=== PATIENT | female | born 1985 | race Two or more races ===

== ENCOUNTER 2024-05-24 06:00 | Day surgery (SDC) | payer MEDICAID, SELFPAY ==
[2024-05-18 08:12] VITALS: BMI 36.1
[2024-05-18 10:18] LABS: HCG,Qualitative Serum Negative
[2024-05-18 10:19] LABS: Basophils % (Auto) 1 % (0-2.5); Eosinophils # (Auto) 0.1 Thou/mm3 (0.0-0.5); Eosinophils % (Auto) 2 % (0-10); Hematocrit 39.5 % (36.0-46.0); Hemoglobin 13.5 g/dL (12.0-16.0); Immature Granulocytes % (Auto) 0 % (0-0); Immature Granulocytes Auto 0.02 Thou/mm3 (0.00-0.00); Lymphocytes # (Auto) 1.5 Thou/mm3 (1.0-4.8); Lymphocytes % (Auto) 26 % (10-50); Mean Corpuscular HGB Conc 34.2 g/dl (31.0-37.0); Mean Corpuscular Hemoglobin 31.3 pg (25.0-35.0); Mean Corpuscular Volume 91 fL (80-100); Monocytes # (Auto) 0.3 Thou/mm3 (0.0-0.8); Monocytes % (Auto) 6 % (0-12); Neutrophils # (Auto) 3.7 Thou/mm3 (1.8-7.7); Neutrophils % (Auto) 65 % (37-80); Nucleated Red Blood Cell % 0 /100 WBC (0); Platelet Count 213 Thou/mm3 (140-440); RDW Standard Deviation 41.7 fL (36.4-46.3); Red Blood Count 4.32 Miln/mm3 (4.00-5.20); White Blood Count 5.7 Thou/mm3 (3.6-11.0)
[2024-05-18 10:22] LABS: Anion Gap 10 (7-16); BUN/Creatinine Ratio 20 Ratio (12-20); Blood Urea Nitrogen 14 mg/dL (9-23); Calcium 9.3 mg/dL (8.3-10.6); Chloride 105 mMol/L (98-107); Creatinine (Component) 0.7 mg/dL (0.6-1.3); Estimated Creatinine Clearance 102.6 mL/min (>60); Glucose 96 mg/dL (74-106); Osmolality,Calculated 283 (275-295); Potassium 4.1 mMol/L (3.4-5.1); Sodium 142 mMol/L (136-145); eGFR > 60 See Note
[2024-05-24] VITALS (9 sets, daily range): BP systolic 111–126; BP diastolic 64–87; PULSE 60–77; RESP 12–20; TEMP 36.5–37.1; O2SAT 96–100; BMI 35.7
[2024-05-24] MEDS: RINGERS LACTATED 1000 ML 1,000 ML 20 ML IV (06:46)
--- NOTE | 2024-05-24 09:17 | ESOP_ITS ---
Date of Procedure 05/24/24 Pre Op Diagnosis Incarcerated umbilical hernia Post Op Diagnosis Incarcerated umbilical hernia Procedure Laparoscopic assisted repair of incarcerated umbilical hernia with mesh Findings An approximately 4 cm umbilical hernia defect with incarcerated omentum Procedure Description Patient brought into the operating room in supine position. After administration of general orotracheal anesthesia, patient's abdomen prepped and draped in standard surgical manner. A 5 mm incision was made in left upper quadrant and Veress needle was inserted, pneumoperitoneum was obtained to 15 mmHg. The Veress needle was removed and a 5 mm trocar was placed. Laparoscopic camera was inserted, under direct visualization a laparoscopic camera a 5 mm trocar placed in left lower quadrant and additional 5 mm trocar placed in right lower quadrant. The abdomen was inspected and patient was noted to have an incarcerated umbilical hernia with omentum being incarcerated within the hernia sac. The hernia sac was excised with Harmonic scalpel laparoscopically and the omentum was reduced. At this point approximately 3 cm semicircular incision was made inferior to the umbilicus and dissection was carried to subcutaneous tissue. The hernia sac was circumferentially dissected off surrounding tissue and excised from surrounding abdominal fascia. The fascia was cleared from overlying tissue. The defect was approximately 4 cm in diameter. A 4 x 6 elliptical shape proceed mesh was used to cover the defect. 2 tacking sutures using 0 Ethibond placed the 2 ends of the mesh and the mesh was placed inside the abdominal cavity through the hernia defect. The defect was closed with interrupted sutures using 0 Ethibond. The umbilicus was tacked into the underlying abdominal fascia was 2-0 Vicryl suture in subcutaneous tissue closed with interrupted sutures of 2-0 Vicryl. The abdomen was once again insufflated. 2 tacking sutures of the 2 ends of the mesh were retrieved through the previously marked abdominal wall site. Sutures were tightened and the mesh was further secured into anterior abdominal wall with secure strap tacking device. The mesh was covering the defect with at least 4 cm circumferential margin. Hemostasis was adequate and satisfactory. Instruments and trocars removed, pneumoperitoneum was evacuated and the incisions closed 4-0 Monocryl subcuticular fashion. Instruments, needles and sponge counts were reported to be correct ?2 patient tolerated the procedure well. Patient was extubated, breathing spontaneously and without difficulty and was transferred to postanesthesia care in stable condition. Anesthesia GETA and local Pathology / specimen Other (Hernia sac) Estimated Blood Loss 5 Condition Stable Disposition PACU Surgeon Akbar Domínguez MD Surgical Staff Operation Date: 05/24/24 08:30 Case Staff Anesthesiologist: Mando Pedroza RNmountain bike guide: Christina Sim
--- NOTE | 2024-05-24 09:23 | SUR.PHASEI ---
0923 Patient arrived to recovery resting comfortably in [facility], on oxygen 8L via oxy mask, breating unlabored, vital signs stable, denies pain, dressing intact to abdomen; x1-dermabond, gauze, medipore tape, x3 dermabond, no bleeding noted, denies nausea, report received from Veronica MCCLENDON and Mando YOUNG
[2024-05-24] MEDS: HYDROmorphone INJ 2 MG/ML VIAL 0.5 MG IV ×3 (09:48→10:10)
--- NOTE | 2024-05-24 11:01 | SUR.PHASEII ---
1101 Patient meets discharge criteria from recovery, awake and alert, breathing unlabored, vital signs stable, per patient her pain is tolerable, dressing intact; no bleeding noted, abdominal binder applied per MD order, patient drinking fluids; tolerating well, denies nausea, patient assisted with dressing into her clothing by her , discharge instructions given with the assistance of the telephone lna Sarah ID#[id number] with teach-back approach, both receptive, patients signed discharge instructions. Patient given all her belongings prior to discharge, transported via wheelchair and left in a private vehicle.
== END 2024-05-24 11:01 | disposition home or self-care (01) ==
PROVIDERS: PCP Family Medicine; Referring Provider Surgery; Visit Provider Surgery
PROC: 0WQF4ZZ Repair Abdominal Wall, Percutaneous Endoscopic Approach (ICD-10-PCS; CPT 49594; principal; 2024-05-24 08:30)
DX: K42.0 Umbilical hernia with obstruction, without gangrene (principal)
CPT/HCPCS: 49594; 36415; 80048; 84703; 85025; A4217; A4649; C1781; J0131; J0690; J1100; J1885; J2405; J2704; J3010; J3490; J7120

== ENCOUNTER 2024-09-12 15:08 | Emergency (ER) | payer MEDICAID, SELFPAY ==
[2024-09-12 15:49] VITALS: BP 125/75; PULSE 78; RESP 15; TEMP 36.8; O2SAT 98; BMI 33.3
--- NOTE | 2024-09-12 15:54 | XR_ITS ---
Examination: CT abdomen and pelvis without contrast. Coronal 3-D reconstructions. Sagittal 2-D reconstructions. Date and time of exam:September 12, 2024 1931 hours INDICATIONS: Left-sided abdominal pain and vomiting beginning 3 days ago CTDI: vol (mGy): 10. DLP: (mGycm): 553. Technique: Axial images of the abdomen have been obtained, 3 mm slice thickness Intravenous contrast material has not been administered. Low dose protocols were performed. One or more of the following dose reduction techniques were used; automated exposure control, adjustment of the mA and/or KV according to patient size, use of iterative reconstruction technique. Findings: No focal liver or splenic lesions No gallstones No pancreatic or adrenal mass Tiny 1 to 2 mm right renal calculi, no hydronephrosis or renal calculi Aorta normal size No pericecal inflammatory changes No bowel obstruction No bladder mass or bladder calculi Moderate disc narrowing L4-L5 IMPRESSION: 1 to 2 mm right renal calculi, no hydronephrosis or ureteral calculi No CT findings of bowel obstruction or diverticulitis Normal appendix
[2024-09-12] MEDS: ONDANSETRON ODT 4 MG TABRAP PO (16:07)
[2024-09-12] MEDS: HYDROcodone/APAP 5/325 TABLET 1 TAB PO (16:07)
[2024-09-12 16:17] LABS: Basophils # (Auto) 0.0 Thou/mm3 (0.0-0.2); Basophils % (Auto) 0 % (0-2.5); Eosinophils # (Auto) 0.0 Thou/mm3 (0.0-0.5); Eosinophils % (Auto) 0 % (0-10); Hematocrit 40.9 % (36.0-46.0); Hemoglobin 14.0 g/dL (12.0-16.0); Immature Granulocytes Auto 0.01 Thou/mm3 (0.00-0.00); Lymphocytes # (Auto) 1.3 Thou/mm3 (1.0-4.8); Lymphocytes % (Auto) 21 % (10-50); Mean Corpuscular HGB Conc 34.2 g/dl (31.0-37.0); Mean Corpuscular Hemoglobin 31.7 pg (25.0-35.0); Mean Corpuscular Volume 93 fL (80-100); Monocytes # (Auto) 0.3 Thou/mm3 (0.0-0.8); Monocytes % (Auto) 6 % (0-12); Neutrophils # (Auto) 4.3 Thou/mm3 (1.8-7.7); Neutrophils % (Auto) 72 % (37-80); Nucleated Red Blood Cell # 0.00 Thou/mm3 (0.00-0.00); Nucleated Red Blood Cell % 0 /100 WBC (0); Platelet Count 244 Thou/mm3 (140-440); RDW Standard Deviation 43.0 fL (36.4-46.3); Red Blood Count 4.41 Miln/mm3 (4.00-5.20); White Blood Count 5.9 Thou/mm3 (3.6-11.0)
--- NOTE | 2024-09-12 16:18 | PD.EDABDPN ---
ED Abdominal Pain RME/HPI General Chief Complaint: Abdominal Pain Stated complaint: L) ABD PAIN W/ VOMITING X 3 DAYS Time seen by provider: 09/12/24 15:24 Arrival date/time: 09/12/24 15:08 39-year-old female with no known medical history presents to the emergency room with a chief complaint of left-sided abdominal pain and vomiting x 3 days Source: patient Mode of arrival: ambulatory Limitations: no limitations Related Data Home Medications ?Medication ?Instructions ?Recorded ?Confirmed norethindrone (contraceptive) 0.35 0.35 mg PO DAILY 05/18/24 05/18/24 mg tablet Previous Rx's ?Medication ?Instructions ?Recorded docusate sodium 100 mg capsule 100 mg PO BID #30 caps 05/24/24 (Colace) hydrocodone 5 mg-acetaminophen 325 1 tab PO Q6H PRN pain (scale score 05/24/24 mg tablet 7-10) #15 tabs ibuprofen 600 mg tablet 600 mg PO Q8H PRN pain (scale 05/24/24 score 4-6) #15 tabs Allergies Allergy/AdvReac Type Severity Reaction Status Date / Time No Known Allergies Allergy Verified 09/12/24 15:12 ED Exam General Limitations: Present no limitations Course Orders Category Date Time Status CT abdomen pelvis wo con Stat Exams 09/12/24 15:54 Ordered CBC Stat Lab 09/12/24 16:05 Received CMP [Comprehensive Metabolic Panel] Stat Lab 09/12/24 16:05 Received HCG Qualitative,Urine Stat Lab 09/12/24 15:54 Ordered Lipase Stat Lab 09/12/24 16:05 Received UA [Urinalysis] Stat Lab 09/12/24 15:54 Ordered Urine Culture Stat Lab 09/12/24 15:54 Ordered HYDROcodone*/APAP 5/325 [[place] 5/325] Med 09/12/24 15:54 Discontinued 1 tab PO X1 ONE Ondansetron Odt [Zofran Odt] Med 09/12/24 15:54 Discontinued 4 mg PO X1 ONE Vital Signs Vital signs: Vital Signs Temperature 98.3 F 09/12/24 15:49 Pulse Rate 78 09/12/24 15:49 Respiratory Rate 15 09/12/24 15:49 Blood Pressure 125/75 09/12/24 15:49 Pulse Oximetry (%) 98 09/12/24 15:49 Oxygen Delivery Method Room Air 09/12/24 15:49 Abdominal Pain MDM Medications / Prescriptions Medication administrations:: Medication Administration History Discontinued Medications Hydrocodone Bitart/Acetaminophen (Hydrocodone/Apap 5/325 Tablet) 1 tab PO X1 ONE Stop: 09/12/24 15:55 Last Admin: 09/12/24 16:07 Dose: 1 tab Documented By: RADHA Ondansetron HCl (Ondansetron Odt 4 Mg Tabrap) 4 mg PO X1 ONE; Protocol Stop: 09/12/24 15:55 Last Admin: 09/12/24 16:07 Dose: 4 mg Documented By: RADHA Discharge Plan Prescriptions/Referrals Prescriptions/Med Rec: No Action norethindrone (contraceptive) 0.35 mg tablet 0.35 mg PO DAILY docusate sodium [Colace] 100 mg capsule 100 mg PO BID Qty: 30 0RF ibuprofen 600 mg tablet 600 mg PO Q8H PRN (Reason: pain (scale score 4-6)) Qty: 15 0RF hydrocodone-acetaminophen 5-325 mg tablet 1 tab PO Q6H MDD 4 PRN (Reason: pain (scale score 7-10)) Qty: 15 0RF Patient/Caregiver Discharge Instructions Print Language: Prydeinig
[2024-09-12 16:43] LABS: Alanine Aminotransferase 10 U/L (10-49); Albumin, Serum 4.6 gm/dL (3.5-5.0); Albumin/Globulin Ratio 1.7 (1.2-2.2); Alkaline Phosphatase 52 U/L (46-116); Anion Gap 11 (7-16); Aspartate Amino Transferase 19 U/L (0-34); BUN/Creatinine Ratio 11 Ratio (12-20); Bilirubin,Total 0.4 mg/dL (0.3-1.2); Blood Urea Nitrogen 9 mg/dL (9-23); Calcium 9.2 mg/dL (8.3-10.6); Calcium (Corrected) 9.2 mg/dL (8.5-10.1); Carbon Dioxide 25.5 mMol/L (20.0-31.0); Chloride 107 mMol/L (98-107); Creatinine (Component) 0.8 mg/dL (0.6-1.3); Estimated Creatinine Clearance 93.1 mL/min (>60); Globulin 2.7 gm/dL (2.3-3.5); Glucose 97 mg/dL (74-106); Lipase 48 U/L (12-53); Osmolality,Calculated 283 (275-295); Potassium 3.7 mMol/L (3.4-5.1); Sodium 143 mMol/L (136-145); Total Protein 7.3 gm/dL (5.7-8.2); eGFR > 60 See Note
[2024-09-12 17:22] LABS: Collection Type, Urine Clean Catch
--- NOTE | 2024-09-12 17:43 | PD.EDRME ---
Rapid Medical Screening Exam RME Arrival date/time: 09/12/24 15:08 39-year-old female with no known medical history presents to the emergency room with a chief complaint of left-sided abdominal pain and vomiting x 3 days I have greeted and performed a focused initial assessment of this patient. A comprehensive ED assessment and evaluation of the patient, analysis of all test results, and completion of the medical decision making process will be conducted by additional ED providers. Chief Complaint: Abdominal Pain Time Seen by Provider: 09/12/24 15:24 Vital signs: Vital Signs Temperature 98.3 F 09/12/24 15:49 Pulse Rate 78 09/12/24 15:49 Respiratory Rate 15 09/12/24 15:49 Blood Pressure 125/75 09/12/24 15:49 Pulse Oximetry (%) 98 09/12/24 15:49 Oxygen Delivery Method Room Air 09/12/24 15:49 Vital signs reviewed by provider: Yes
[2024-09-12 17:55] LABS: HCG Qualitative,Urine Negative
[2024-09-12 17:58] LABS: Bilirubin,Urine Negative (Negative); Blood,Urine 3+ (Negative); Color,Urine Yellow (Lt Yel-Yel); Glucose, Urine Negative (Negative); Ketones,Urine 3+ (Negative); Leukocyte Esterase,Urine Negative (Negative); Nitrite,Urine Negative (Negative); PH,Urine 6.0 (5.0-7.0); Protein,Urine 1+ (Neg - Trace); RBC,Urine 72 /hpf (0-3); Specific Gravity,Urine 1.033 (1.001-1.035); Squamous Epithelial Cell,Urine < 1 /hpf (0-5); Urobilinogen,Urine Negative mg/dL (0.0-1.0); WBC,Urine 1 /hpf (0-5)
[2024-09-12 17:59] LABS: Clarity,Urine Hazy (Clear/Hazy)
--- NOTE | 2024-09-12 19:00 | PC.NURSE ---
CALLED CT RE: WHEN PT WILL BE TAKEN. THERE IS 1 PT AHEAD OF HER. PT INFORMED.
[2024-09-12 19:35] VITALS: BP 138/84; PULSE 72; RESP 16; TEMP 36.9; O2SAT 100
--- NOTE | 2024-09-12 21:14 | PD.EDABDPN ---
ED Abdominal Pain RME/HPI General Chief Complaint: Abdominal Pain Stated complaint: L) ABD PAIN W/ VOMITING X 3 DAYS Time seen by provider: 09/12/24 15:24 Arrival date/time: 09/12/24 15:08 Limitations: no limitations RME / HPI RME / HPI narrative: 09/12/24 15:08 39-year-old female with no known medical history presents to the emergency room with a chief complaint of left-sided abdominal pain and vomiting x 3 days She has had some nausea without vomiting. No changes in bowel movements. No fevers or chills. She denies any flank pain or dysuria. Has no gross hematuria. She denies any diarrhea. She has no other acute complaints. Related Data Home Medications ?Medication ?Instructions ?Recorded ?Confirmed norethindrone (contraceptive) 0.35 0.35 mg PO DAILY 05/18/24 05/18/24 mg tablet Previous Rx's ?Medication ?Instructions ?Recorded docusate sodium 100 mg capsule 100 mg PO BID #30 caps 05/24/24 (Colace) hydrocodone 5 mg-acetaminophen 325 1 tab PO Q6H PRN pain (scale score 05/24/24 mg tablet 7-10) #15 tabs ibuprofen 600 mg tablet 600 mg PO Q8H PRN pain (scale 05/24/24 score 4-6) #15 tabs cephalexin 500 mg capsule 500 mg PO Q6H 7 days #28 caps 09/12/24 cephalexin 500 mg capsule 500 mg PO QID 7 days #28 caps 09/12/24 Allergies Allergy/AdvReac Type Severity Reaction Status Date / Time No Known Allergies Allergy Verified 09/12/24 15:12 Review of Systems Review of Systems Systems Reviewed: All systems reviewed, normal except as documented ED Exam General Limitations: Present no limitations General appearance: Present alert and in no apparent distress Head Head exam: Present atraumatic Eye Eye exam: Present normal appearance, PERRL and EOMI ENT ENT exam: Present normal exam, normal oropharynx and mucous membranes moist Neck Neck exam: Present normal inspection, full ROM and trachea midline Chest Chest inspection: Present normal inspection and symmetric chest wall rise Respiratory Respiratory exam: Present normal lung sounds bilaterally Cardiovascular Cardiovascular exam: Present regular rate, normal rhythm and normal heart sounds Abdominal Exam Abdominal exam: Present soft; Absent distention, tenderness, guarding or rebound Extremities Exam Extremities exam: Present normal inspection and full ROM Back Exam Back exam: Present normal inspection and full ROM Neurological Exam Neurological exam: Present alert and oriented X3 Psychiatric Psychiatric exam: Present normal affect and normal mood Skin Skin exam: Present warm, dry, intact and normal color Course Quality Measures none Orders Category Date Time Status CT abdomen pelvis wo con Stat Exams 09/12/24 15:54 Completed CBC Stat Lab 09/12/24 16:05 Completed CMP [Comprehensive Metabolic Panel] Stat Lab 09/12/24 16:05 Completed HCG Qualitative,Urine Stat Lab 09/12/24 17:00 Completed Lipase Stat Lab 09/12/24 16:05 Completed UA [Urinalysis] Stat Lab 09/12/24 17:00 Completed Urine Culture Stat Lab 09/12/24 17:00 Received HYDROcodone*/APAP 5/325 [[place] 5/325] Med 09/12/24 15:54 Discontinued 1 tab PO X1 ONE Ketorolac Inj [Toradol Inj] Med 09/12/24 21:02 Discontinued 15 mg IVP X1 ONE Ondansetron Odt [Zofran Odt] Med 09/12/24 15:54 Discontinued 4 mg PO X1 ONE Tamsulosin HCl [Flomax] Med 09/12/24 21:06 Discontinued 0.4 mg PO X1 ONE cephALEXin [Keflex] Med 09/12/24 21:06 Discontinued 500 mg PO X1 ONE Vital Signs Vital signs: Vital Signs Temperature 98.3 F 09/12/24 15:49 Pulse Rate 78 09/12/24 15:49 Respiratory Rate 15 09/12/24 15:49 Blood Pressure 125/75 09/12/24 15:49 Pulse Oximetry (%) 98 09/12/24 15:49 Oxygen Delivery Method Room Air 09/12/24 15:49 Abdominal Pain MDM MDM Narrative MDM Narrative:: 09/12/24 15:08 39-year-old female with no known medical history presents to the emergency room with a chief complaint of left-sided abdominal pain and vomiting x 3 days She has had some nausea without vomiting. No changes in bowel movements. No fevers or chills. She denies any flank pain or dysuria. Has no gross hematuria. She denies any diarrhea. She has no other acute complaints. On exam, patient is nontoxic-appearing and in no visible signs of distress. Vital signs are stable. Workup reveals no leukocytosis or anemia. Metabolic panel is unremarkable. Urinalysis reveals 72 erythrocytes with no significant leukocytes. I reviewed the CT, thought there was a question of a right-sided ureter stone near the UVJ however the radiologist reports no ureterolithiasis Discussed findings with the patient. She is placed on Keflex. She will be discharged with prescription of Keflex and naproxen. She is asked to follow-up with her primary doctor this week. Return as needed for any worsening or emergent changes Patient data External records reviewed:: None Clinical information provided by:: patient Social determinants that could affect healthcare access:: none Patient has the following chronic illnesses:: n/a How is presenting disease/condition affected by chronic disease/condition?: no chronic disease Evaluation data The following diagnostics were reviewed and interpreted by me:: lab results (CBC, metabolic panel, are unremarkable. There is microscopic hematuria.) and radiology exam(s) (Radiology reports no acute abnormalities) Lab and/or radiology exams considered but not ordered:: n/a Interpretation Summary: Hematuria Medications / Prescriptions Medications or Prescriptions considered but not ordered:: n/a Medication administrations:: Medication Administration History Discontinued Medications Hydrocodone Bitart/Acetaminophen (Hydrocodone/Apap 5/325 Tablet) 1 tab PO X1 ONE Stop: 09/12/24 15:55 Last Admin: 09/12/24 16:07 Dose: 1 tab Documented By: RADHA Cephalexin HCl (Cephalexin 250 Mg Capsule) 500 mg PO X1 ONE Stop: 09/12/24 21:07 Last Admin: 09/12/24 21:19 Dose: 500 mg Documented By: NERISSA Ketorolac Tromethamine (Ketorolac Inj 30 Mg/Ml Vial) 15 mg IVP X1 ONE Stop: 09/12/24 21:03 Last Admin: 09/12/24 21:19 Dose: 15 mg Documented By: NERISSA Ondansetron HCl (Ondansetron Odt 4 Mg Tabrap) 4 mg PO X1 ONE; Protocol Stop: 09/12/24 15:55 Last Admin: 09/12/24 16:07 Dose: 4 mg Documented By: RADHA Tamsulosin HCl (Tamsulosin Hcl 0.4 Mg Capsule) 0.4 mg PO X1 ONE Stop: 09/12/24 21:07 Last Admin: 09/12/24 21:19 Dose: 0.4 mg Documented By: NERISSA See above Consultations Consultation(s) initiated? (list below): No Diagnosis Differential diagnosis abdominal pain: acute appendicitis, calculus of kidney, pancreatitis and small bowel obstruction Most likely diagnosis given after review of the tests above:: Hematuria Admission Indicated Admission indicated?: not indicated Admission Request Was there a request for admission?: No Disposition Plan Disposition Plan: Discharge Discharge Attestation Discharge Attestation: The patient and all family members were given an opportunity to ask questions and understood the discharge instructions. Discharge instructions specifically effects, indications for sooner follow up or return to the emergency department, and the expected course of current diagnosis. Patient condition: Stable Discharge Plan Plan Patient Disposition: HOME (Self Care) Patient condition on transfer: Stable Prescriptions/Referrals Prescriptions/Med Rec: New cephalexin 500 mg capsule 500 mg PO QID 7 Days Qty: 28 0RF cephalexin 500 mg capsule 500 mg PO Q6H 7 Days Qty: 28 0RF No Action norethindrone (contraceptive) 0.35 mg tablet 0.35 mg PO DAILY docusate sodium [Colace] 100 mg capsule 100 mg PO BID Qty: 30 0RF ibuprofen 600 mg tablet 600 mg PO Q8H PRN (Reason: pain (scale score 4-6)) Qty: 15 0RF hydrocodone-acetaminophen 5-325 mg tablet 1 tab PO Q6H MDD 4 PRN (Reason: pain (scale score 7-10)) Qty: 15 0RF Referrals: No Primary/Family,Physician [Primary Care Provider] - In 1 week Problem List Clinical Impression: Cystitis Patient/Caregiver Discharge Instructions Education Materials: ED CYSTITIS Female Adult Additional Instructions: - Aumente la hidrataci?n oral. Use el antibi?ulises recetado. - Realice un seguimiento cl?rosetta minucioso esta semana. - Regrese seg?n sea necesario ante cualquier empeoramiento o cambio de urgencia. - Increase oral hydration. Use the provided antibiotic as prescribed. - Follow-up in clinic closely this week. - Return as needed for any worsening or emergent changes. Print Language: Cambodian Stand Alone Forms: [employer] Award Info., Patient Portal Info Letter
[2024-09-12] MEDS: TAMSULOSIN HCL 0.4 MG CAPSULE PO (21:19)
[2024-09-12] MEDS: KETOROLAC INJ 30 MG/ML VIAL 15 MG IVP (21:19)
[2024-09-12 21:39] VITALS: BP 138/85; PULSE 62; RESP 16; TEMP 36.7; O2SAT 98
== END 2024-09-12 21:39 | disposition home or self-care (01) ==
PROVIDERS: Nurse Practitioner Family; Emergency Provider Emergency Medicine
DX: N30.91 Cystitis, unspecified with hematuria (principal)
CPT/HCPCS: 36415; 74176; 80053; 81001; 81025; 83690; 85025; 87077; 87086; 87186; 96374; 99283; J1885; Q0162; A9270

== ENCOUNTER 2024-09-25 20:14 | Emergency (ER) | payer MEDICAID, SELFPAY ==
[2024-09-25 20:15] VITALS: BMI 35.5
[2024-09-25 20:36] VITALS: BP 123/78; PULSE 78; RESP 18; TEMP 36.9; O2SAT 99
--- NOTE | 2024-09-25 20:54 | PD.EDFMALE ---
ED Female Urogenital RME/HPI General Chief complaint: Urogenital-Female Stated complaint: PROLAPSE UTERUS UNABLE TO PEE OR HAVE A BM Time Seen by Provider: 09/25/24 20:29 Arrival date/time: 09/25/24 20:14 This is a 39-year-old female that comes into the emergency room with complaints of prolapsed uterus. Patient states that recently she had a hard time urinating. Patient also complains of back pain. Patient reports that she has not had a bowel movement in the last 2 days. Patient was recently told that she needed to have a hysterectomy to help with prolapsed uterus. Patient currently being worked up by her primary doctor. Patient does have a pessary in place. Patient was seen here approximately 10 to 11 days ago. Patient was diagnosed with a UTI. Patient had some blood in her urine and was found to have small kidney stone. Related Data Home Medications ?Medication ?Instructions ?Recorded ?Confirmed norethindrone (contraceptive) 0.35 0.35 mg PO DAILY 05/18/24 05/18/24 mg tablet Previous Rx's ?Medication ?Instructions ?Recorded docusate sodium 100 mg capsule 100 mg PO BID #30 caps 05/24/24 (Colace) hydrocodone 5 mg-acetaminophen 325 1 tab PO Q6H PRN pain (scale score 05/24/24 mg tablet 7-10) #15 tabs ibuprofen 600 mg tablet 600 mg PO Q8H PRN pain (scale 05/24/24 score 4-6) #15 tabs ibuprofen 800 mg tablet 800 mg PO Q6H PRN pain #14 tabs 09/25/24 sennosides 8.6 mg-docusate sodium 1 tab-cap PO BID #20 tabs 09/25/24 50 mg tablet (Senokot-S) Allergies Allergy/AdvReac Type Severity Reaction Status Date / Time No Known Allergies Allergy Verified 09/25/24 20:15 Review of Systems Review of Systems Systems Reviewed: All systems reviewed, normal except as documented Past Medical History Surgical History SURGICAL: Negative Section Past Medical History Comments PMH COMMENT: Type 2 diabetes ED Exam Narrative Physical exam: VITAL SIGNS: Reviewed. GENERAL APPEARANCE: Alert and interactive, follows commands, no acute distress HEAD AND FACE: Non-traumatic. ENT: PERRL, conjuctiva pink and clear, eyelid no trauma, Mucous membrane moist. NECK: Supple, nontender, no nuchal rigidity. CHEST: No tenderness, no crepitus, no paradoxical movement, no retractions. LUNGS: Clear, well ventilated, symmetric, no rales, no wheezing, no rhonchi, no stridor, good breath sounds bilaterally. HEART: Regular rate, regular rhythm, no murmur, no gallops. ABDOMEN: Soft, nondistended, no guarding, nontender NEUROLOGICAL: Gross motor function intact sensory function intact, Appropriate for age. MUSCULOSKELETAL: low back nontender, full range of motion. EXTREMITIES: No redness no swelling no skin breakdown on bilateral foot and leg. Distal neurovascular status intact bilateral foot SKIN: Color pink, dry, no rash, no lacerations, no abrasions, no contusions. Course Quality Measures none Orders Category Date Time Status CBC Stat Lab 09/25/24 20:50 Completed Comprehensive Metabolic Panel Stat Lab 09/25/24 20:50 Completed HCG Qualitative,Urine Stat Lab 09/25/24 22:40 Completed Lipase Stat Lab 09/25/24 20:50 Completed Urinalysis, C/S if Indicated Stat Lab 09/25/24 22:40 Completed Acetaminophen Tab [Tylenol ES Tab] Med 09/25/24 23:25 Discontinued 1,000 mg PO X1 ONE Ibuprofen Tab [Motrin Tab] Med 09/25/24 23:25 Discontinued 800 mg PO X1 ONE Lactulose Syrup [Enulose Syrup] Med 09/25/24 23:25 Discontinued 10 gm PO X1 ONE Vital Signs Vital signs: Vital Signs Temperature 98.5 F 09/25/24 20:36 Pulse Rate 78 09/25/24 20:36 Respiratory Rate 18 09/25/24 20:36 Blood Pressure 123/78 09/25/24 20:36 Pulse Oximetry (%) 99 09/25/24 20:36 Oxygen Delivery Method Room Air 09/25/24 20:36 Urogenital - Female MDM Narrative MDM Narrative:: Labs reviewed. CBC unremarkable BMP unremarkable lipase 47 UA unremarkable. I spoke to patient at length. Patient was taking [place] for pain. Patient previously diagnosed with a kidney stone. Patient has not had a bowel movement in the last 2 days. Will give patient a dose of lactulose here and send patient home with Senokot. I told patient not to take any more [place]. Patient is urinating with no issues. I put patient in stirrups and examined patient pelvic area. Patient removed her pessary. It appears that it is working well per patient but is uncomfortable. I told patient to talk to her primary doctor about this. We do not carry NSAIDs here in the emergency room. This is the fourth 1 that they have placed on patient and this is the one that fit her better so far. Patient states this 1 does not fall out. I talked to patient at length to follow-up with primary provider in 1 to 2 days. Come back to the emergency room symptoms change or worsen. Patient feels comfortable plan of care. Patient verbalized understanding. Dragon dictation: Although this document has been carefully reviewed, there may still be some phonetic and other typographical errors. These errors are purely grammatical due to imperfections in the software program and should not be construed in any way to compromise the substance of the patient's medical care during this visit. Patient data External records reviewed:: [facility] previous records Clinical information provided by:: patient Social determinants that could affect healthcare access:: none Patient has the following chronic illnesses:: see note How is presenting disease/condition affected by chronic disease/condition?: no chronic disease Evaluation data The following diagnostics were reviewed and interpreted by me:: lab results Lab and/or radiology exams considered but not ordered:: none Interpretation Summary: see note Medications / Prescriptions Medications or Prescriptions considered but not ordered:: none Medication administrations:: Medication Administration History Discontinued Medications Acetaminophen (Acetaminophen 500 Mg Tablet) 1,000 mg PO X1 ONE Stop: 09/25/24 23:26 Last Admin: 09/25/24 23:39 Dose: 1,000 mg Documented By: EPHRAIM Ibuprofen (Ibuprofen Tab 400 Mg Tablet) 800 mg PO X1 ONE Stop: 09/25/24 23:26 Last Admin: 09/25/24 23:39 Dose: 800 mg Documented By: EPHRAIM Lactulose (Lactulose Syrup 20 Gm/30 Ml Udc) 10 gm PO X1 ONE; Protocol Stop: 09/25/24 23:26 Last Admin: 09/25/24 23:40 Dose: 10 gm Documented By: EPHRAIM see mar Consultations Consultation(s) initiated? (list below): No Diagnosis Urogenital Female Differential Diagnosis: urinary tract infection, cystitis and other (abdominal pain constipation ) Most likely diagnosis given after review of the tests above:: uti Admission Indicated Admission indicated?: not indicated Admission Request Was there a request for admission?: No Disposition Plan Disposition Plan: Discharge Discharge Attestation Discharge Attestation: The patient and all family members were given an opportunity to ask questions and understood the discharge instructions. Discharge instructions specifically effects, indications for sooner follow up or return to the emergency department, and the expected course of current diagnosis. Patient condition: Stable Discharge Plan Plan Patient Disposition: HOME (Self Care) Patient condition on transfer: Stable Prescriptions/Referrals Prescriptions/Med Rec: New sennosides-docusate sodium [Senokot-S] 8.6-50 mg tablet 1 tab-cap PO BID Qty: 20 0RF ibuprofen 800 mg tablet 800 mg PO Q6H PRN (Reason: pain) Qty: 14 0RF No Action norethindrone (contraceptive) 0.35 mg tablet 0.35 mg PO DAILY docusate sodium [Colace] 100 mg capsule 100 mg PO BID Qty: 30 0RF ibuprofen 600 mg tablet 600 mg PO Q8H PRN (Reason: pain (scale score 4-6)) Qty: 15 0RF hydrocodone-acetaminophen 5-325 mg tablet 1 tab PO Q6H MDD 4 PRN (Reason: pain (scale score 7-10)) Qty: 15 0RF Referrals: No Primary/Family,Physician [Primary Care Provider] - In 1 week Problem List Clinical Impression: Back pain, Constipation Patient/Caregiver Discharge Instructions Discharge Activity: activity as tolerated Education Materials: Treating Constipation, ED Back Pain (Acute or Chronic) Additional Instructions: Antonio un lui con burkett medico de cabecera en las proximas 24-48 horas. Regrese a la forrest de emergencias si hay evidencia de que los signos o sintomas empeoran. Print Language: Nauruan Stand Alone Forms: Kajal Award Info., Patient Portal Info Letter PA/CASE PACKER AND SEALER Supervising Physician ELIAZAR/JASON Supervising Physician: pascale
[2024-09-25 21:07] LABS: Basophils # (Auto) 0.0 Thou/mm3 (0.0-0.2); Basophils % (Auto) 0 % (0-2.5); Eosinophils # (Auto) 0.1 Thou/mm3 (0.0-0.5); Eosinophils % (Auto) 2 % (0-10); Hematocrit 41.3 % (36.0-46.0); Hemoglobin 13.9 g/dL (12.0-16.0); Immature Granulocytes Auto 0.01 Thou/mm3 (0.00-0.00); Lymphocytes # (Auto) 1.0 Thou/mm3 (1.0-4.8); Lymphocytes % (Auto) 17 % (10-50); Mean Corpuscular HGB Conc 33.7 g/dl (31.0-37.0); Mean Corpuscular Hemoglobin 31.1 pg (25.0-35.0); Mean Corpuscular Volume 92 fL (80-100); Monocytes # (Auto) 0.4 Thou/mm3 (0.0-0.8); Monocytes % (Auto) 6 % (0-12); Neutrophils # (Auto) 4.8 Thou/mm3 (1.8-7.7); Neutrophils % (Auto) 76 % (37-80); Nucleated Red Blood Cell # 0.00 Thou/mm3 (0.00-0.00); Nucleated Red Blood Cell % 0 /100 WBC (0); Platelet Count 213 Thou/mm3 (140-440); RDW Standard Deviation 42.6 fL (36.4-46.3); Red Blood Count 4.47 Miln/mm3 (4.00-5.20); White Blood Count 6.3 Thou/mm3 (3.6-11.0)
[2024-09-25 22:05] LABS: Alanine Aminotransferase 14 U/L (10-49); Albumin, Serum 4.7 gm/dL (3.5-5.0); Albumin/Globulin Ratio 1.9 (1.2-2.2); Alkaline Phosphatase 59 U/L (46-116); Anion Gap 11 (7-16); Aspartate Amino Transferase 17 U/L (0-34); BUN/Creatinine Ratio 17 Ratio (12-20); Bilirubin,Total 0.6 mg/dL (0.3-1.2); Blood Urea Nitrogen 12 mg/dL (9-23); Calcium 9.6 mg/dL (8.3-10.6); Calcium (Corrected) 9.6 mg/dL (8.5-10.1); Carbon Dioxide 25.3 mMol/L (20.0-31.0); Chloride 106 mMol/L (98-107); Creatinine (Component) 0.7 mg/dL (0.6-1.3); Estimated Creatinine Clearance 101.7 mL/min (>60); Globulin 2.5 gm/dL (2.3-3.5); Glucose 119 mg/dL (74-106); Lipase 47 U/L (12-53); Osmolality,Calculated 283 (275-295); Potassium 3.6 mMol/L (3.4-5.1); Sodium 142 mMol/L (136-145); Total Protein 7.2 gm/dL (5.7-8.2); eGFR > 60 See Note
[2024-09-25 23:01] LABS: Collection Type, Urine Voided
[2024-09-25 23:12] LABS: HCG Qualitative,Urine Negative
[2024-09-25 23:15] LABS: Bilirubin,Urine Negative (Negative); Blood,Urine Negative (Negative); Clarity,Urine Clear (Clear/Hazy); Color,Urine Yellow (Lt Yel-Yel); Culture Indicated,Urine Not Indicated; Glucose, Urine Negative (Negative); Ketones,Urine Negative (Negative); Leukocyte Esterase,Urine Negative (Negative); Nitrite,Urine Negative (Negative); PH,Urine 6.0 (5.0-7.0); Protein,Urine Trace (Neg - Trace); RBC,Urine 2 /hpf (0-3); Specific Gravity,Urine 1.038 (1.001-1.035); Squamous Epithelial Cell,Urine 2 /hpf (0-5); Urobilinogen,Urine Negative mg/dL (0.0-1.0); WBC,Urine 1 /hpf (0-5)
[2024-09-25] MEDS: IBUPROFEN TAB 400 MG TABLET 800 MG PO (23:39)
[2024-09-25] MEDS: ACETAMINOPHEN 500 MG TABLET 1000 MG PO (23:39)
[2024-09-25] MEDS: LACTULOSE SYRUP 20 GM/30 ML UDC 10 GM PO (23:40)
[2024-09-25 23:44] VITALS: BP 106/66; PULSE 73; RESP 18; TEMP 36.7; O2SAT 99
== END 2024-09-25 23:51 | disposition home or self-care (01) ==
PROVIDERS: Nurse Practitioner Family; Emergency Provider Emergency Medicine
DX: M54.9 Dorsalgia, unspecified (principal); K59.00 Constipation, unspecified
CPT/HCPCS: 36415; 80053; 81001; 81025; 83690; 85025; 99283; A9270